=== PATIENT | female | born 1945 | race Caucasian/White ===

== ENCOUNTER → 2018-11-05 | Outpatient (CLI) | payer MEDICARE ==
--- NOTE | 2018-11-05 17:40 | PCVCIMAG ---
APPROVED REPORT Study performed: 11/05/2018 16:25:05 EXAM: Comprehensive 2D, Doppler, and color-flow Echocardiogram Patient Location: Echo lab Room #: 2Status: routine BSA: 1.73 HR: 66 bpmBP: 118/68 mmHg Rhythm: NSR Other Information Study Quality: Good Indications Dyspnea Fatigue HX SVT ablation 2D Dimensions IVSd: 9.60 (7-11mm)LVOT Diam: 19.67 (18-24mm) LVDd: 42.37 mm PWd: 9.77 (7-11mm)Ascending Ao: 30.80 (22-36mm) LVDs: 25.41 (25-40mm) Left Atrium: 36.68 (27-40mm) Aortic Root: 24.21 mm LV Single Plane 4CH: 60.06 % LV Single Plane 2CH: 60.72 % Biplane EF: 60.9 % Volumes Left Atrial Volume (Systole) Single Plane 4CH: 58.10 mLSingle Plane 2CH: 42.78 mL Biplane LA Volume: 51.00 mLLA ESV Index: 29.00 mL/m2 Aortic Valve AoV Peak Kevyn.: 1.55 m/s AO Peak Gr.: 9.63 mmHgLVOT Max P.30 mmHg LVOT Max V: 0.91 m/s HONEY Vmax: 1.78 cm2 Mitral Valve MV Peak Gr.: 4.52 mmHg MV Mean Gr.: 1.69 mmHgE/A Ratio: 1.0 MV Decel. Time: 209.39 ms MV E Max Kevyn.: 0.83 m/s MV A Kevyn.: 0.81 m/s MV Max Kevyn.: 1.06 m/s MV Mean Kevyn.: 0.60 m/s MV VTI: 301.66 mm MV PHT: 79.26 ms MVA (PHT): 2.78 cm2 IVRT: 121.11 ms TDI E/Lateral E': 10.38E/Medial E': 16.60 Medial E' Kevyn.: 0.05 m/s Lateral E' Kevyn.: 0.08 m/s Pulmonary Valve PV Peak Kevyn.: 0.91 m/sPV Peak Gr.: 3.33 mmHg Pulmonary Vein P Vein S: 0.75 m/sP Vein A: 0.26 m/s P Vein D: 0.44 m/sP Vein A Dur.: 117.6 msec P Vein S/D Ratio: 1.70 Tricuspid Valve TR Peak Kevyn.: 2.40 m/s TR Peak Gr.: 22.98 mmHg TV Vmax: 0.58 m/sPA Pressure: 30.00 mmHg Left Ventricle The left ventricle is normal size. There is normal LV segmental wall motion. There is normal left ventricular wall thickness. Left ventricular systolic function is normal. The left ventricular ejection fraction is within the normal range. LVEF is 60-65%. Mild diastolic dysfunction is present (impaired relaxation pattern). Right Ventricle The right ventricle is normal size. The right ventricular systolic function is normal. Atria The left atrium size is normal. The right atrium size is normal. Aortic Valve Aortic valve is trileaflet, mild sclerosis No aortic regurgitation is present. There is no aortic valvular stenosis. Mitral Valve Mild mitral annular calcification. Thickened, mildly calcified anterior mitral leaflet There is no mitral valve regurgitation noted. No evidence of mitral valve stenosis. Tricuspid Valve The tricuspid valve is normal in structure. Mild tricuspid regurgitation with a PA pressure of 30 mmHg. Pulmonic Valve The pulmonary valve is normal in structure. There is no pulmonic valvular regurgitation. Great Vessels The aortic root is normal in size. The ascending aorta is normal in size. Aortic arch is normal in caliber. IVC is normal in size and collapses >50% with inspiration. Pericardium There is no pericardial effusion. There is no pleural effusion. <Conclusion> Left ventricular systolic function is normal. There is normal LV segmental wall motion. LVEF is 60-65%. Mild diastolic dysfunction Aortic valve is trileaflet, mild sclerosis. No aortic regurgitation or stenosis Mild mitral annular calcification. Thickened, mildly calcified anterior mitral leaflet. No mitral valve regurgitation. Mild tricuspid regurgitation with a pulmonary artery pressure of 30 mmHg. There is no pericardial effusion.
== END | disposition home or self-care (01) ==
LOC: PCVCIMAG 15:52
PROVIDERS: ATTEND Internal Medicine Cardiovascular Disease
DX: I08.3 Combined rheumatic disorders of mitral, aortic and tricuspid valves (principal)
CPT/HCPCS: 93306